=== PATIENT | male | born 1955 | race Caucasian/White ===

== ENCOUNTER → 2020-02-16 14:15 | Outpatient (CLI) | payer SELFPAY ==
--- NOTE | ~2020-02-16 | CT_ITS ---
EXAMINATION: CT brain wo con EXAM DATE: 02/16/2020 14:31 INDICATION: Mild cognitive impairment. TECHNIQUE: Spiral CT of the head was performed without contrast. Axial, coronal and sagittal images were reviewed. The dose-length product (DLP) for this examination was 599.57 mGy-cm. The exposure w as tailored according to patient size, and iterative reconstruction (ASIR) was used as additional dos e reduction technique. There is no prior study for comparison. FINDINGS: There is no acute intraparenchymal hemorrhage. No evidence of intraparenchymal brain mass lesion. No evidence of acute infarction. There is no mass effect or midline shift. The ventricles are normal in size. There are no extra-axial collections. There are no acute calvarial fractures. T he orbits are unremarkable. Soft tissue is unremarkable. The visualized sinuses and mastoid air bessie ls are well aerated. Small posterior fossa arachnoid cyst, not clinically significant finding. IMPRESSION: No acute intracranial findings. Reviewed, dictated and finalized at location B.
== END ==
PROVIDERS: PCP Pediatrics; Visit Provider Pediatrics
DX: G31.84 Mild cognitive impairment of uncertain or unknown etiology (principal)
CPT/HCPCS: 70450

== ENCOUNTER → 2022-07-02 13:21 | Outpatient (CLI) | payer OTHER, SELFPAY ==
--- NOTE | ~2022-07-02 | MR_ITS ---
EXAMINATION: MR brain/brain stem wo/w con DATE: 07/02/2022 14:06 INDICATION: Memory loss TECHNIQUE: Magnetic resonance imaging (MRI) of the brain and brainstem was performed without and with 15 mL Multihance intravenous contrast. Sequences included sagittal and axial T1-weighted SE, axial d iffusion-weighted FS SE, axial T2*-weighted GRE, axial 3D SWAN, axial T2-weighted FLAIR, and axial T2 -weighted FSE. Postcontrast axial and coronal T1-weighted SE was obtained. Apparent diffusion coeffic ient (ADC) maps were created. COMPARISON: CT dated 02/16/2020 FINDINGS: There are no areas of restricted diffusion to suggest acute infarction. No intracranial hemorrhage or abnormal intracranial mass lesion. There are few tiny scattered foci of nonspecific increased T2-lucia ghted signal intensity in the cerebral white matter which is within normal limits for age. There are no intraparenchymal signal abnormalities seen on the other pulse sequences. The ventricles are symmet jimmy and normal in size. Again seen is a posterior fossa arachnoid cyst along the medial side of the l eft cerebellar hemisphere.. No other abnormal extra-axial fluid collections. Flow voids are seen in t he cerebral arteries on the T2-weighted sequences consistent with their expected patency. Mild mucosa l thickening in the bilateral ethmoid sinuses. Visualized orbits and soft tissues are unremarkable. T here are no areas of abnormal enhancement on the post contrast images. IMPRESSION: 1. Normal aging brain with unchanged incidental small posterior fossa arachnoid cyst. Reviewed, dictated and finalized at location A. D PATTERN SETTER
== END ==
PROVIDERS: PCP Family Medicine; Visit Provider Family Medicine
DX: R53.83 Other fatigue (principal); R41.3 Other amnesia; I49.3 Ventricular premature depolarization
CPT/HCPCS: 70553; A9577

== ENCOUNTER → 2022-09-11 08:19 | Outpatient (CLI) | payer MEDICARE, SELFPAY | PROVIDERS: PCP Family Medicine; Visit Provider Internal Medicine | DX: R00.1 Bradycardia, unspecified (principal); G47.30 Sleep apnea, unspecified | CPT/HCPCS: 99199 ==

== ENCOUNTER 2022-09-30 08:07 | Outpatient (CLI) | payer MEDICARE, SELFPAY ==
--- NOTE | 2022-10-03 14:05 | WPDSLEEPSTUD ---
Sleep Study Date of Study: 09/30/22 Ordering Provider: CONTINUING EDUCATION DEAN PHYSICIAN Interpreting Physician: Dorene Kang MD Sleep Study Type: Polysomnogram Height: 1.8 m Weight: 78.018 kg Body Mass Index: 24.0 Neck Circumference (inches): 16.5 [place]: 5 Reason for Sleep Study Bradycardia, palpitations; surveyor referred for concerns regarding obstructive sleep apnea Sleep History Morales Gilbert is a 67-year-old man with bradycardia and palpitations; an echo 08/2021 showed normal LV size and function, LVEF 55-60%. He does not sleep well. He feels restless while falling asleep. He wakes up during the night and sometimes does not find it easy to return to sleep. He is aware of his PVCs especially during the night. He is wondering if this has an effect on his sleep. He reports problems with memory as well as frequent headaches. He does not awaken from sleep feeling short of breath. He does not awaken at night with heartburn, belching or coughing. He rarely snores. Never snores loudly enough that others complain. He does not have difficulty sleeping with a cold. He does not wake up gasping for breath at night. He does not have breathing problems at night observed by others. He does not sweat excessively at night. He always notices his heart pounding or beating irregularly at night. He does not fall asleep during the day. He does not fall asleep involuntarily. He does not fall asleep while driving. He does not have loss of muscle tone with strong emotion. He does not have daytime difficulties due to excessive sleepiness. He does not feel paralyzed on waking or falling asleep. He does not have vivid dreamlike scenes on waking or falling asleep. He does not feel afraid to go to sleep. He does not have nightmares. He occasionally remembers his dreams. He does not have racing thoughts. He does not feel sad or depressed. He occasionally has anxiety. He does not have muscular tension. He does not notice parts of his body jerking and he does not kick at night. He denies having crawling or aching feelings in his legs or any kind of leg pain at night. Does not have morning jaw pain. He does not grind his teeth during sleep. He is not bothered by pain during the day or awakened by pain at night. He does not wake up feeling stiff in the morning with sore achy muscles or pain in the neck and spine. Normal bedtime is 11:00 p.m. falling asleep within 5 minutes, waking once during the night to turn over. He is able to return to sleep fairly quickly. He repositions himself in bed. His normal wake up time is 6:00 a.m.. He keeps the same schedule on weekends. He takes naps during the afternoon or evening. A short nap 10 or 15 minutes long may or may not be refreshing. He feels better in the morning compared to other times of day. Habits: Never smoked tobacco. Caffeine 2 servings a day. No alcohol or recreational substances. [facility] Past Medical History Medical History (Updated 10/03/22 @ 15:26 by Dorene Kang MD) Bradycardia Enlarged prostate Fatigue Prostate cancer Shortness of Breath Vertigo Surgical History Surgical History (Updated 10/03/22 @ 14:14 by Dorene Kang MD) History of cervical spinal surgery History of prostatectomy Family History Family History (Updated 10/03/22 @ 14:16 by Dorene Kang MD) Sibling Pancreatic cancer Mother Diabetes mellitus Social History Social History (Updated 10/03/22 @ 14:16 by Dorene Kang MD) Smoking status: Never smoker Medications Medications: multivitamin with calcium, iron and minerals turmeric root 500 mg for memory, bone health melatonin 10 mg HS for sleep gingko biloba, choline 230 mg for memory hemp extract 20 mL HS for sleep donepezil 10 mg nightly for memory Sleep Procedure This test was performed using the [employer] multiple channel system including EOG, EEG, submental EMG, EKG, nasal and oral airflow using therm
[2022-10-03 14:24] VITALS: BMI 24.0
== END 2022-10-01 07:12 | disposition home or self-care (01) ==
LOC: ANHCSM 08:08
PROVIDERS: PCP Family Medicine; Visit Provider Internal Medicine
DX: G47.30 Sleep apnea, unspecified (principal); R00.1 Bradycardia, unspecified
CPT/HCPCS: 95810

== ENCOUNTER 2023-05-07 13:04 | Emergency (ER) | payer MEDICARE, SELFPAY ==
--- NOTE | ~2023-05-07 | XR_ITS ---
EXAMINATION: XR chest 2V 05/07/2023 15:09 INDICATION: Status post fall. Chest pain. PROCEDURE: 2 view chest COMPARISON: No prior studies for comparison. FINDINGS: The lungs are clear. The cardiomediastinal silhouette is within normal limits. There are no pleural effusions. There is no pneumothorax suspected. IMPRESSION: 1: NO ACUTE CARDIOPULMONARY DISEASE. Reviewed, dictated and finalized at location L. PLAYER
--- NOTE | ~2023-05-07 | XR_ITS ---
EXAM: XR wrist LT min 3V DATE: 05/07/2023 15:09 HISTORY: fall WHILE ICE SKATING, REPORTS PINS AND NEEDLES MEI ARMS . COMPARISON: None available. FINDINGS: Normal mineralization. Old ulnar styloid fracture. No acute fracture or dislocation. No ly tic or blastic lesion. Joint spaces are maintained. No erosion or periosteal change. Soft tissues wit hin normal limits. IMPRESSION: No acute osseous finding the left wrist. Reviewed, dictated and finalized at location K. ILLING OPERATOR
--- NOTE | ~2023-05-07 | CT_ITS ---
EXAMINATION: CT cervical spine wo con DATE: 05/07/2023 14:46 INDICATION: Head injury. TECHNIQUE: Computed tomography (CT) of the cervical spine was performed without intravenous contrast. Automated exposure control and iterative reconstruction technique were employed. The dose-length pro duct was 335.22 mGy-cm. COMPARISON: None FINDINGS: Bone alignment is normal. Vertebral body heights are normal. There is severely decreased di sc height from C3-C4 through C6-C7. The osseous central spinal canal is developmentally small. The fo llowing disc levels are specifically discussed: C2-C3: There is mild bilateral uncovertebral joint osteoarthritis. There is mild bilateral facet join t osteoarthritis. There is no neural foraminal stenosis. There is mild central canal stenosis. C3-C4: There is severe bilateral uncovertebral joint osteoarthritis. There is severe right and mild l eft facet joint osteoarthritis. There is moderate right and mild left neural foraminal stenosis. Ther e is mild central canal stenosis. C4-C5: There is severe bilateral uncovertebral joint osteoarthritis. There is mild bilateral facet ksenia int osteoarthritis. There is moderate right and mild left neural foraminal stenosis. There is moderat e central canal stenosis. C5-C6: There is severe bilateral uncovertebral joint osteoarthritis. There is mild bilateral facet ksenia int osteoarthritis. There is mild bilateral neural foraminal stenosis. There is moderate central cas l stenosis. C6-C7: There is severe bilateral uncovertebral joint osteoarthritis. There is mild bilateral facet ksenia int osteoarthritis. There is moderate bilateral neural foraminal stenosis. There is moderate central canal stenosis. C7-T1: There is no uncovertebral joint osteoarthritis. There is severe bilateral facet joint osteoart hritis. There is mild right and moderate left neural foraminal stenosis. There is no central canal st enosis. IMPRESSION: 1. No fracture. 2. Severe cervical spondylosis. Reviewed, dictated and finalized at location A. DISPENSER
--- NOTE | ~2023-05-07 | CT_ITS ---
EXAMINATION: CT BRAIN W/O DATE: 05/07/2023 14:46 INDICATION: Head injury. TECHNIQUE: Computed tomography (CT) of the head was performed without intravenous contrast. The dose- length product was 605.33 mGy-cm. Automated exposure control and iterative reconstruction technique w ere employed. COMPARISON: CT dated 02/16/2020 FINDINGS: Normal brain parenchymal volume for age. Normal ceballos-white differentiation. No acute intrac ranial hemorrhage, infarction, mass or mass effect. No ventriculomegaly or midline shift. Midline sagittal images demonstrate a normal corpus callosum, c raniovertebral junction and sella turcica. Basilar cisterns are patent. Small arachnoid cyst posterio r fossa. Paranasal sinuses and mastoids are pneumatized. No depressed skull fractures. IMPRESSION: 1. No acute intracranial abnormality. Reviewed, dictated and finalized at location L. SPRINKLER DESIGNER
--- NOTE | ~2023-05-07 | XR_ITS ---
EXAM: XR wrist RT min 3V DATE: 05/07/2023 15:09 HISTORY: fall WHILE ICE SKATING, REPORTS PINS AND NEEDLES MEI ARMS . COMPARISON: None available. FINDINGS: Normal mineralization. No fracture or dislocation. No lytic or blastic lesion. Joint space s are maintained. No erosion or periosteal change. Soft tissues within normal limits. IMPRESSION: No acute osseous finding in the right wrist. Reviewed, dictated and finalized at location K. DRY WORKER APPRENTICE
--- NOTE | ~2023-05-07 | XR_ITS ---
XR shoulder RT min 2V 05/07/2023 15:10 Indication: Right shoulder pain Procedure: 4 views right shoulder Comparison: No prior studies for comparison. Findings: Mild polyarticular osteoarthritis. No fracture or traumatic malalignment. No significant so ft tissue abnormality. No foreign bodies. Impression: 1: Mild polyarticular osteoarthritis. Reviewed, dictated and finalized at location L. R ACID DRUM Impression: 1: Mild polyarticular osteoarthritis.
--- NOTE | ~2023-05-07 | XR_ITS ---
EXAM: XR shoulder LT min 2V DATE: 05/07/2023 15:10 HISTORY: fall WHILE ICE SKATING, REPORTS PINS AND NEEDLES MEI ARMS . COMPARISON: None available. FINDINGS: Normal mineralization. No fracture or dislocation. No lytic or blastic lesion. Moderate AC joint and mild glenohumeral joint osteoarthritis. No erosion or periosteal change. Soft tissues with in normal limits. IMPRESSION: No acute osseous finding in the left shoulder. Reviewed, dictated and finalized at location K. OARCHAEOLOGIST
--- NOTE | ~2023-05-07 | XR_ITS ---
EXAM: XR elbow LT min 3V DATE: 05/07/2023 15:09 HISTORY: fall WHILE ICE SKATING, REPORTS PINS AND NEEDLES MEI ARMS . COMPARISON: None available. FINDINGS: Normal mineralization. No fracture or dislocation. No lytic or blastic lesion. Joint space s are maintained. No erosion or periosteal change. Soft tissues within normal limits. IMPRESSION: No acute osseous finding the left elbow. Reviewed, dictated and finalized at location K. ESTRA TEACHER
--- NOTE | ~2023-05-07 | XR_ITS ---
EXAM: XR elbow RT min 3V DATE: 05/07/2023 15:09 HISTORY: fall WHILE ICE SKATING, REPORTS PINS AND NEEDLES MEI ARMS . COMPARISON: Left elbow radiographs, same date. FINDINGS: Normal mineralization. No fracture or dislocation. No lytic or blastic lesion. Joint space s are maintained. No erosion or periosteal change. Soft tissues within normal limits. Slight anterior displacement of the anterior fat pad due to a small elbow joint effusion. IMPRESSION: Small right elbow joint effusion, which can accompany occult radial head fractures. Reviewed, dictated and finalized at location K. TRIMMER
[2023-05-07 13:05] VITALS: BP 163/91; PULSE 58; RESP 22; O2SAT 100
[2023-05-07 13:20] VITALS: TEMP 36.3
--- NOTE | 2023-05-07 14:29 | ED.FALL ---
HPI - Fall General Chief Complaint: Fall Stated Complaint: fall/anxiety Time Seen by Provider: 05/07/23 13:44 Source: patient Mode of arrival: ambulatory Limitations: no limitations History of Present Illness HPI Narrative: This is a 68-year-old male that presents to the emergency department after a fall today with head injury. Reports he fell while ice skating. He does believe he hit his head. He did not lose consciousness. Since he has had a headache and tingling in his arms. Reports pain in his bilateral shoulders, elbows and wrists. Denies decreased ROM or numbness. Related Data Allergies Allergy/AdvReac Type Severity Reaction Status Date / Time No Known Allergies Allergy Unverified 01/19/18 07:49 Review of Systems Review of Systems: CONSTITUTIONAL: Denies fever EYES: Denies visual changes GASTROINTESTINAL: Denies vomiting MUSCULOSKELETAL: Reports joint pain and myalgia. Denies back pain NEUROLOGIC: Reports headache. Denies numbness, or weakness. All systems reviewed & are unremarkable except as noted in HPI and below PMFSH Past Medical History Medical History (Updated 05/07/23 @ 15:55 by Chelle Interiano PA-C) Bradycardia Enlarged prostate Fatigue Prostate cancer Shortness of Breath Vertigo Surgical History Surgical History (Updated 10/03/22 @ 14:14 by Dorene Kang MD) History of cervical spinal surgery History of prostatectomy Family History Family History (Updated 10/03/22 @ 14:16 by Dorene Kang MD) Sibling Pancreatic cancer Mother Diabetes mellitus Social History Social History (Updated 10/03/22 @ 14:16 by Dorene Kang MD) Smoking status: Never smoker Exam Narrative: GENERAL: Well-appearing, well-nourished, and in no acute distress. HEAD: Normocephalic, atraumatic. EYES: PERRLA and EOMI. ENT: Nares clear, no rhinorrhea or epistaxis. Mucous membranes moist. Oropharynx without tonsillar hypertrophy exudate or other lesions. Bilateral TMs pearly ceballos non-bulging NECK: Supple. No adenopathy or masses. CHEST: Clear to auscultation. No respiratory distress. No wheezes rales or rhonchi HEART: Regular rate and rhythm. No murmur heard. Normal peripheral pulses. BACK: No midline spinal tenderness EXTREMITIES: Normal range of motion. No edema or obvious deformity. Strength equal in bilateral upper and lower extremities (5/5) SKIN: Warm, dry, no rash. NEURO: No focal deficits. Alert and oriented x3. CN II-XII grossly intact PSYCH: Normal mood and affect Course Course Emergency Course: Patient and family updated on workup and agree with plan of care Vital Signs Vital signs: Vital Signs Pulse Rate 58 L 05/07/23 13:05 Respiratory Rate 22 H 05/07/23 13:05 Blood Pressure 163/91 H 05/07/23 13:05 Pulse Oximetry 100 05/07/23 13:05 Oxygen Delivery Room Air 05/07/23 13:05 Temperature 97.4 F L 05/07/23 13:20 Pulse Rate 58 L 05/07/23 13:05 Respiratory Rate 22 H 05/07/23 13:05 Blood Pressure 163/91 H 05/07/23 13:05 Pulse Oximetry 100 05/07/23 13:05 Oxygen Delivery Room Air 05/07/23 13:05 Procedures Orthopedic Splinting/Casting Injury #1: Splinting/Casting Date: 05/07/23 Splinting/Casting Time: 16:03 Side: right Upper Extremity Injury Location: elbow Upper Extremity Immobilizer: sling/shoulder immobilizer Splint: prefabricated Pre-Formed: sling Pre-Procedure Neuro Vascular Exam: normal Post-Procedure Neuro Vascular Exam: normal MDM - Fall MDM Narrative Medical decision making narrative: Patient presents to the emergency department after a fall today with head injury and bilateral arm pain. Patient is neurologically intact. CT scan of the brain and cervical spine without acute findings. Bilateral shoulder and wrist x-rays without acute osseous abnormalities. Left elbow x-ray is normal. Right elbow x-ray shows a joint effusion which can be seen in occult radial hea
[2023-05-07] MEDS: ACETAMINOPHEN 500 MG TABLET 1000 MG PO (14:37)
== END 2023-05-07 16:18 | disposition home or self-care (01) ==
PROVIDERS: Emergency Provider Physician Assistant; PCP Family Medicine
DX: S09.90XA Unspecified injury of head, initial encounter (principal); M25.421 Effusion, right elbow; N40.0 Benign prostatic hyperplasia without lower urinary tract symptoms; Z85.46 Personal history of malignant neoplasm of prostate; Z90.79 Acquired absence of other genital organ(s); M47.812 Spondylosis without myelopathy or radiculopathy, cervical region; M19.011 Primary osteoarthritis, right shoulder; V00.211A Fall from ice-skates, initial encounter; Y93.21 Activity, ice skating
CPT/HCPCS: 70450; 71046; 72125; 73030; 73080; 73110; 99284; A9270; L0140